=== PATIENT | male | born 1985 | race Caucasian/White ===

== ENCOUNTER 2017-01-11 01:45 | Emergency (ER) | payer SELFPAY ==
[2017-01-11 02:06] VITALS: BP 137/83
[2017-01-11] MEDS ORDERED: HYDROMORPHONE HCL INJ/PF 2 MG/ML AMPULE IM ONE (03:03)
[2017-01-11] MEDS ORDERED: LIDOCAINE 1% INJ-PF (10 MG/ML) 30 ML SDV INJ ONE (03:03)
[2017-01-11] MEDS ORDERED: ONDANSETRON 4 MG TAB.RAPDIS PO ONE (03:03)
--- NOTE | 2017-01-11 03:04 | ER Document Report ---
ED Skin Rash/Insect Bite/Abscs - General Chief Complaint: Abscess Stated Complaint: POSSIBLE ABSCESS Time Seen by Provider: 01/11/17 02:45 Notes: Patient is a 31-year-old male comes emergency department for chief complaint of an abscess on the back of his neck at the base of his hairline, he states he has squeezed pus out of it but it has spread instead of going away. He states he thinks he had a fever yesterday. He denies any daily medications, he does not have diabetes. TRAVEL OUTSIDE OF THE [place] IN LAST 30 DAYS: No - Related Data Allergies/Adverse Reactions: No Known Allergies Allergy (Unverified 01/11/17 02:07) Past Medical History - General Information source: Patient - Social History Smoking Status: Current Every Day Smoker Chew tobacco use (# tins/day): No Frequency of alcohol use: None Drug Abuse: None Lives with: Family Family History: None, Reviewed & Not Pertinent Patient has suicidal ideation: No Patient has homicidal ideation: No Renal/ Medical History: Denies: Hx Peritoneal Dialysis Skin Medical History: Reports Hx Cellulitis Psychiatric Medical History: Reports: Hx Depression - Immunizations Immunizations up to date: Yes Hx Diphtheria, Pertussis, Tetanus Vaccination: No Review of Systems - Review of Systems Constitutional: No symptoms reported EENT: No symptoms reported Cardiovascular: No symptoms reported Respiratory: No symptoms reported Gastrointestinal: No symptoms reported Genitourinary: No symptoms reported Male Genitourinary: No symptoms reported Musculoskeletal: No symptoms reported Skin: See HPI Hematologic/Lymphatic: No symptoms reported Neurological/Psychological: No symptoms reported Physical Exam - Vital signs Vitals: Temp Pulse Resp BP Pulse Ox 97.8 F 94 16 137/83 H 97 01/11/17 02:02 01/11/17 02:02 01/11/17 02:02 01/11/17 02:02 01/11/17 02:02 Interpretation: Normal - General General appearance: Appears well, Alert In distress: None - HEENT Head: Normocephalic, Atraumatic Eyes: Normal Pupils: PERRL - Respiratory Respiratory status: No respiratory distress Chest status: Nontender Breath sounds: Normal Chest palpation: Normal - Cardiovascular Rhythm: Regular Heart sounds: Normal auscultation Murmur: No - Abdominal Inspection: Normal Distension: No distension Bowel sounds: Normal Tenderness: Nontender Organomegaly: No organomegaly - Back Back: Normal, Nontender - Extremities General upper extremity: Normal inspection, Nontender, Normal color, Normal ROM , Normal temperature General lower extremity: Normal inspection, Nontender, Normal color, Normal ROM , Normal temperature, Normal weight bearing. No: Armaan's sign - Neurological Neuro grossly intact: Yes Cognition: Normal Orientation: AAOx4 Bishop Coma Scale Eye Opening: Spontaneous Bishop Coma Scale Verbal: Oriented [place] Coma Scale Motor: Obeys Commands Bishop Coma Scale Total: 15 Speech: Normal Motor strength normal: LUE, RUE, LLE, RLE Sensory: Normal - Psychological Associated symptoms: Normal affect, Normal mood - Skin Skin Temperature: Warm Skin Moisture: Dry Skin Color: Normal Skin irregularity: Abscess - 2 adjacent abscesses at the nape of the left neck area, induration and fluctuance, medial one is already draining, no significant erythema spreading away from the area, normal skin exam otherwise Course - Re-evaluation Re-evalutation: 2 abscesses drained and packed. Provided dressing materials, discussed care of the abscesses, discussed follow-up and return precautions. 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 Patient is afebrile here, vital signs unremarkable. Patient states understanding and agreement. - Vital Signs Vital signs: Temp Pulse Resp BP Pulse Ox 97.8 F 94 16 137/83 H 97 01/11/17 02:02 01/11/17 02:02 01/11/17 02:02 01/11/17 02:02 01/11/17 02:02 Procedures - Incision and Drainage Left mid posterior neck Type: Multiple - 2 separate abscesses Anesthetic type: 1% Lidocaine mL's of anesthetic: 4 Blade size: 11 I&D procedure: Shurclens applied - Surgical cleanser, Iodoform packing placed, Sterile dressing applied Incision Method: Incision made by scalpel Amount/type of drainage: Moderate amount of purulent drainage Discharge - Discharge Clinical Impression: Abscess Condition: Stable Disposition: HOME, SELF-CARE Additional Instructions: Your examination showed abscess of sebaceous (oil) glands. In 48 hours take the packing out, clean with soap and water, apply absorbent dressing over the area while these drain and heal. Take the antibiotic as prescribed. Follow up with Primary Care. Return to the ED for any concerning or worsening symptoms - spreading redness, swelling, spiking fever, etc. Prescriptions: Sulfamethoxazole/Trimethoprim [Bactrim Ds Tablet] 1 each PO BID #14 tablet Forms: Return to Work
[2017-01-11] MEDS ORDERED: HYDROCODONE/ACETAMINOPHEN 5-325 MG 6 TAB/DSPK PO PRN (04:21)
== END 2017-01-11 04:39 | disposition home or self-care (01) ==
LOC: ER 01:45
PROC: 0H94XZZ Drainage of Neck Skin, External Approach (ICD-10-PCS; principal; 2017-01-11)
DX: L02.11 Cutaneous abscess of neck (principal); Z86.14 Personal history of Methicillin resistant Staphylococcus aureus infection
CPT/HCPCS: 99283; 96372; 10060; A6266; S0119; J3490; J1170

== ENCOUNTER 2017-02-24 14:25 | Observation (INO) | payer SELFPAY ==
--- NOTE | 2017-02-24 15:15 | ER Document Report ---
ED Skin Rash/Insect Bite/Abscs - General Chief Complaint: Abscess Stated Complaint: NECK PAIN Time Seen by Provider: 02/24/17 15:02 Mode of Arrival: Ambulatory Information source: Patient Notes: 31-year-old male presents to ED for abscess to the left posterior neck that goes all the way across to the back of the neck and down to the upper shoulders. He states he was in the emergency room in December for an abscess to a similar area had it I&D placed on Keflex and Bactrim and was discharged home after they had opened up the abscess. He states that the abscess came back on his left side about a week to 2 weeks later he went to [facility] they did not janet it but they did put him on the Keflex and Bactrim again he states it got a little better but 6 or 7 days ago the abscess is back on the back of his neck his neck is very swollen he is unable to move his neck due to the pain and swelling from the abscess his pulse is 133 while in the emergency room but his temp is 98.9. States his pain level is a 5. TRAVEL OUTSIDE OF THE [place] IN LAST 30 DAYS: No - HPI Patient complains to provider of: Tender/swollen area Onset: Last week Onset/Duration: Gradual, Worse Quality of pain: Pressure, Sharp, Throbbing Severity: Severe Pain Level: 5 Skin Character: Abscess, Erythema, Swelling, Tenderness, Thickening Quality of rash: Painful Exacerbated by: Movement Relieved by: Denies Similar symptoms previously: Yes Recently seen / treated by doctor: Yes - Related Data Allergies/Adverse Reactions: No Known Allergies Allergy (Verified 02/24/17 14:29) Home Medications: Current Home Medications No Home Medications 02/24/17 [History] Past Medical History - General Information source: Patient - Social History Smoking Status: Current Every Day Smoker Cigarette use (# per day): Yes Chew tobacco use (# tins/day): No Smoking Education Provided: Yes - Less than 2 minutes Frequency of alcohol use: None Drug Abuse: None Lives with: Family Family History: Reviewed & Not Pertinent Patient has suicidal ideation: No Patient has homicidal ideation: No - Past Medical History Cardiac Medical History: Reports: None Pulmonary Medical History: Reports: None EENT Medical History: Reports: None Neurological Medical History: Reports: None Endocrine Medical History: Reports: None Renal/ Medical History: Reports: None Malignancy Medical History: Reports None GI Medical History: Reports: None Musculoskeltal Medical History: Reports Hx Musculoskeletal Deformity, Reports Hx Musculoskeletal Trauma Skin Medical History: Reports Hx Cellulitis Psychiatric Medical History: Reports: Hx Depression Traumatic Medical History: Reports: None Infectious Medical History: Reports: None Surgical Hx: Negative - Immunizations Immunizations up to date: Yes Hx Diphtheria, Pertussis, Tetanus Vaccination: No Review of Systems - Review of Systems Constitutional: No symptoms reported EENT: No symptoms reported Cardiovascular: No symptoms reported Respiratory: No symptoms reported Gastrointestinal: No symptoms reported Genitourinary: No symptoms reported Male Genitourinary: No symptoms reported Musculoskeletal: No symptoms reported Skin: Change in color, Other - Red swelling abscess to posterior neck Hematologic/Lymphatic: No symptoms reported Neurological/Psychological: No symptoms reported -: Yes All other systems reviewed and negative Physical Exam - Vital signs Vitals: Temp Pulse BP Pulse Ox 98.9 F 133 H 147/86 H 97 02/24/17 14:28 02/24/17 14:28 02/24/17 14:28 02/24/17 14:28 Interpretation: Normal - General General appearance: Appears well, Alert - HEENT Head: Normocephalic, Atraumatic Eyes: Normal Pupils: PERRL - Respiratory Respiratory status: No respiratory distress Chest status: Nontender Breath sounds: Normal Chest palpation: Normal - Cardiovascular Rhythm: Regular Heart sounds: Normal auscultation Murmur: No - Abdominal Inspection: Normal Distension: No distension Bowel sounds: Normal Tenderness: Nontender Organomegaly: No organomegaly - Back Back: Normal, Nontender - Extremities General upper extremity: Normal inspection, Nontender, Normal color, Normal ROM , Normal temperature General lower extremity: Normal inspection, Nontender, Normal color, Normal ROM , Normal temperature, Normal weight bearing. No: Armaan's sign - Neurological Neuro grossly intact: Yes Cognition: Normal Orientation: AAOx4 Mary [place] Coma Scale Eye Opening: Spontaneous [place] Coma Scale Verbal: Oriented Mary [place] Coma Scale Motor: Obeys Commands Mary Lou Coma Scale Total: 15 Speech: Normal Motor strength normal: LUE, RUE, LLE, RLE Sensory: Normal - Psychological Associated symptoms: Normal affect, Normal mood - Skin Skin Temperature: Warm Skin Moisture: Dry Skin Color: Normal Skin irregularity: Abscess Location of irregularity: Neck Character of irregularity: Erythematous Irregularity with: Swelling, Tenderness, Warmth Course - Re-evaluation Re-evalutation: 02/24/17 15:54 Patient's pulse was 138 and upon initial assessment with a low-grade temp of 100.2. He has a large infected area to the back of his head neck and upper back. He states this has returned several times and is failed outpatient treatment. Dr. Nunes was consulted and he stated that we needed to get a CT IV contrast of the neck to rule out any deep abscesses. We will do a septic workup on him, we are starting him on Zosyn and vancomycin clindamycin giving morphine Zofran and Toradol. I have started him on 2 L of fluid bolus. He will be admitted to either surgery or hospice depending on results of the CT scan. - Vital Signs Vital signs: Temp Pulse Resp BP Pulse Ox 98.1 F 90 13 127/83 H 100 02/24/17 19:04 02/24/17 19:04 02/24/17 19:04 02/24/17 19:04 02/24/17 19:04 - Laboratory Result Diagrams: 02/24/17 15:35 02/24/17 15:35 Laboratory results interpreted by me: 02/24/17 02/24/17 15:35 15:35 WBC 10.7 H Glucose 120 H Total Bilirubin 1.7 H Discharge - Discharge Clinical Impression: shingle left neck, cellulitis posterior neck Condition: Poor Disposition: ADMITTED OBSERVATION Admitting Provider: Hospitalist [facility] Unit Admitted: Medical Floor
[2017-02-24] MEDS ORDERED: ONDANSETRON HCL INJ/PF 4 MG/2 ML SDV IV ONE (15:21)
[2017-02-24] MEDS ORDERED: MORPHINE SULFATE 10 MG/ML INJ IV ONE (15:21)
[2017-02-24] MEDS ORDERED: VANCOMYCIN HCL INJ 1000 MG VIAL IV ONE (15:38)
[2017-02-24] MEDS ORDERED: CLINDAMYCIN 600 MG/D5W RTU 600 MG/50 ML RTUPB IV ONE (15:38)
[2017-02-24] MEDS ORDERED: PIPERACILLIN/TAZOBACTAM 4.5 GM VIAL IV ONE (15:39)
[2017-02-24] MEDS: NORMAL SALINE 1000 ML 1,000 ML IV PRN ×2 (15:42→16:58)
[2017-02-24] MEDS ORDERED: KETOROLAC TROMETHAMINE INJ/PF 30 MG/1 ML SDV IV ONE (15:42)
[2017-02-24 16:01] LABS: ABSOLUTE EOSINOPHILS # (AUTO) 0.1 10^3/uL (0.0-0.6); ABSOLUTE LYMPHOCYTES (AUTO) 2.3 10^3/uL (0.5-4.7); ABSOLUTE MONOCYTES (AUTO) 0.9 10^3/uL (0.1-1.4); ABSOLUTE NEUT (AUTO) 7.4 10^3/uL (1.7-8.2); BASOPHILS % (AUTO) 0.3 % (0-2); EOSINOPHILS % (AUTO) 0.9 % (0-6); HEMATOCRIT 44.3 % (37.9-51.0); HEMOGLOBIN 15.7 g/dL (13.5-17.0); HGB HCT DIFFERENCE 2.8; LYMPHOCYTES % (AUTO) 21.5 % (13-45); MEAN CORPUSCULAR HEMOGLOBIN 29.8 pg (27.0-33.4); MEAN CORPUSCULAR HGB CONC 35.5 g/dL (32.0-36.0); MEAN CORPUSCULAR VOLUME 84 fl (80-97); MONOCYTES % (AUTO) 8.6 % (3-13); RED BLOOD COUNT 5.28 10^6/uL (4.35-5.55); RED CELL DISTRIBUTION WIDTH 13.2 % (11.5-14.0); SEGMENTED NEUTROPHILS % (AUTO) 68.7 % (42-78); WHITE BLOOD COUNT 10.7 10^3/uL (4.0-10.5)
[2017-02-24 16:22] LABS: ALANINE AMINOTRANSFERASE 51 U/L (21-72); ALBUMIN 4.5 g/dL (3.5-5.0); ALKALINE PHOSPHATASE 39 U/L (38-126); ANION GAP 14 (5-19); ASPARTATE AMINO TRANSFERASE 34 U/L (17-59); BILIRUBIN,DIRECT 0.4 mg/dL (0.0-0.4); BILIRUBIN,TOTAL 1.7 mg/dL (0.2-1.3); BLOOD UREA NITROGEN 9 mg/dL (7-20); CALCIUM 9.5 mg/dL (8.4-10.2); CARBON DIOXIDE 23 mmol/L (22-30); CHLORIDE 102 mmol/L (98-107); CREATININE RESULT 0.81 mg/dL (0.52-1.25); GLUCOSE 120 mg/dL (75-110); POTASSIUM 3.8 mmol/L (3.6-5.0); SODIUM 138.9 mmol/L (137-145); TOTAL PROTEIN 7.5 g/dL (6.3-8.2)
--- NOTE | 2017-02-24 16:32 | RADIOLOGY REPORT (SQ) ---
EXAM DESCRIPTION: CHEST PA/LAT COMPLETED DATE/TIME: 02/24/2017 4:20 pm REASON FOR STUDY: fever neck infection COMPARISON: 12/06/2014 EXAM PARAMETERS: NUMBER OF VIEWS: two views TECHNIQUE: Digital Frontal and Lateral radiographic views of the chest acquired. RADIATION DOSE: NA LIMITATIONS: none FINDINGS: LUNGS AND PLEURA: No opacities, masses or pneumothorax. No pleural effusion. MEDIASTINUM AND HILAR STRUCTURES: No masses or contour abnormalities. HEART AND VASCULAR STRUCTURES: Heart normal size. No evidence for failure. BONES: No acute findings. HARDWARE: None in the chest. OTHER: No other significant finding. IMPRESSION: NO SIGNIFICANT RADIOGRAPHIC FINDING IN THE CHEST. TECHNICAL DOCUMENTATION: JOB ID: [id number] [employer]- All Rights Reserved
--- NOTE | 2017-02-24 16:42 | RADIOLOGY REPORT (SQ) ---
EXAM DESCRIPTION: CT SOFT TISSUE NECK WITH COMPLETED DATE/TIME: 02/24/2017 4:26 pm REASON FOR STUDY: neck infection fever tachycardic Attention posterior left neck COMPARISON: None. TECHNIQUE: Post IV contrasted scanning from skull base through lung apices with review of bone, soft tissue and lung windows. Reconstructed coronal and sagittal MPR images reviewed. All images stored on PACS. All CT scanners at this facility use dose modulation, iterative reconstruction, and/or weight based d osing when appropriate to reduce radiation dose to as low as reasonably achievable (ALARA). [facility]: Dose Right [facility]: CareDose [facility]: Dose Right [facility]: Teradose 4D [facility]: FortaTrust CONTRAST TYPE AND DOSE: contrast/concentration: Isovue 370.00 mg/ml; Total Contrast Delivered: 75.0 ml; Total Saline Delivered: 55.0 ml 75 mL Isovue 370 intravenously RENAL FUNCTION: Not required for younger patients. RADIATION DOSE: Up-to-date CT equipment and radiation dose reduction techniques were employed. CTDIv ol: 16.1 mGy. DLP: 625 mGy-cm. . LIMITATIONS: None. FINDINGS: SKULL BASE: Intact. MAJOR SALIVARY GLANDS: No solid or cystic masses. No inflammatory changes. LYMPHADENOPATHY: Scattered nodes are seen in the posterior left neck up to 15 mm. No soft tissue air or abnormal fluid collections. Skin thickening is noted. MUCOSAL MASSES OR ASYMMETRY: No mucosal masses or asymmetry. LARYNX/CORDS: No abnormal findings. VASCULAR STRUCTURES: The major vessels are patent. LUNG APICES: Clear. BONES: Intact. THYROID: Normal size. No masses. PARANASAL SINUSES: Clear. OTHER: No other significant finding. IMPRESSION: Slight adenopathy and skin thickening posterior left neck, nodes up to 15 mm. No soft tissue air or abnormal fluid collections. TECHNICAL DOCUMENTATION: JOB ID: [id number] Quality ID # [id number]: Final reports with documentation of one or more dose reduction techniques (e.g., Au tomated exposure control, adjustment of the mA and/or kV according to patient size, use of iterative reconstruction technique) 2010 [employer]- All Rights Reserved
[2017-02-24] MEDS ORDERED: ACETAMINOPHEN 650 MG SUPP.RECT PR PRN (17:30)
[2017-02-24] MEDS ORDERED: ONDANSETRON HCL INJ/PF 4 MG/2 ML SDV IV PRN (17:30)
[2017-02-24] MEDS ORDERED: ZOLPIDEM TARTRATE 5 MG TABLET PO PRN (17:30)
[2017-02-24] MEDS ORDERED: KETOROLAC TROMETHAMINE INJ/PF 30 MG/1 ML SDV IV PRN (17:48)
[2017-02-24] MEDS ORDERED: VALACYCLOVIR HCL 500 MG TABLET PO SCH ×2 (18:00→22:00)
--- NOTE | 2017-02-24 18:07 | PDOC H&P ---
History of Present Illness Patient complains of: Neck pain for 1 week History of Present Illness: DAVONTE SULLIVAN is a 31 year old male presented to urgent care complaining of neck pain for 1 week. Patient states that has been having break outs for the past month. He has been treated with a combination of Septra and Keflex with no improvement. Patient thinks describes excruciating pain burning like. He has been exposed to shingles. Patient admits a history of opioid abuse in the past. Patient complains of having bad nerves. He also complains of having high tolerance to medications for pain. He smokes a pack of cigarettes daily. Has a history of hepatitis C. During the course of evaluation in the emergency room patient was treated with Zosyn, clindamycin and vancomycin. Hospitalist service was contacted for further management and prompted to admit primarily for observation status for pain management. Past Medical History Cardiac Medical History: Reports: None Pulmonary Medical History: Reports: None EENT Medical History: Reports: None Neurological Medical History: Reports: None Endocrine Medical History: Reports: None Renal/ Medical History: Reports: None Malignancy Medical History: Reports: None GI Medical History: Reports: None, Hepatitis - Hepatitis C, Other Psychiatric Medical History: Reports: Depression, Substance Abuse, Tobacco Dependency Traumatic Medical History: Reports: None Infectious Medical History: Reports: None Past Surgical History Past Surgical History: Reports: Other - Incision and drainage of lesions of the back of the neck Social History Lives with: Family Smoking Status: Current Every Day Smoker Frequency of Alcohol Use: None Hx Recreational Drug Use: No Hx Prescription Drug Abuse: Yes - Advance Directive Resuscitation Status: Full Code Family History Family History: Reviewed & Not Pertinent Parental Family History Reviewed: Yes Children Family History Reviewed: Yes Sibling(s) Family History Reviewed.: Yes Medication/Allergy Home Medications: No Home Medications 02/24/17 Allergies/Adverse Reactions: No Known Allergies Allergy (Verified 02/24/17 14:29) Review of Systems Constitutional: ABSENT: chills, fever(s), headache(s) Eyes: ABSENT: visual disturbances Ears: ABSENT: hearing changes Cardiovascular: ABSENT: chest pain, edema, palpitations Respiratory: ABSENT: dyspnea, hemoptysis Gastrointestinal: ABSENT: diarrhea, dysphagia, heartburn Genitourinary: ABSENT: dysuria, hematuria Musculoskeletal: ABSENT: deformity, joint swelling Integumentary: PRESENT: rash Neurological: ABSENT: abnormal gait, focal weakness Psychiatric: PRESENT: anxiety, depression. ABSENT: homidical ideation, suicidal ideation Physical Exam Vital Signs: Temp Pulse Resp BP Pulse Ox 98.9 F 133 H 13 147/86 H 98 02/24/17 14:28 02/24/17 14:28 02/24/17 16:04 02/24/17 14:28 02/24/17 16:04 Intake & Output 02/23/17 02/24/17 02/25/17 06:59 06:59 06:59 Weight 96.6 kg General appearance: PRESENT: mild distress, well-developed, well-nourished Head exam: PRESENT: atraumatic, normocephalic Eye exam: PRESENT: conjunctiva pink, EOMI, PERRLA Ear exam: PRESENT: normal external ear exam Mouth exam: PRESENT: moist, other - There is mild redness and swelling localized to the posterior aspect of neck. There are some dried vesicular lesions noted left sided posteriorly. Neck exam: PRESENT: tenderness. ABSENT: full ROM, JVD, lymphadenopathy, meningismus Respiratory exam: PRESENT: clear to auscultation juan jose Cardiovascular exam: PRESENT: diastolic murmur, RRR, systolic murmur Vascular exam: PRESENT: normal capillary refill GI/Abdominal exam: PRESENT: normal bowel sounds, soft. ABSENT: tenderness Extremities exam: PRESENT: full ROM. ABSENT: joint swelling, pedal edema Musculoskeletal exam: PRESENT: full ROM Neurological exam: PRESENT: alert, oriented to person, oriented to place, oriented to time Psychiatric exam: PRESENT: anxious, appropriate affect Results Laboratory Results: 02/24/17 15:35 02/24/17 15:35 02/24/17 02/24/17 02/24/17 15:35 15:35 15:35 WBC 10.7 H RBC 5.28 Hgb 15.7 Hct 44.3 MCV 84 MCH 29.8 MCHC 35.5 RDW 13.2 Plt Count 163 Seg Neutrophils % 68.7 Lymphocytes % 21.5 Monocytes % 8.6 Eosinophils % 0.9 Basophils % 0.3 Absolute Neutrophils 7.4 Absolute Lymphocytes 2.3 Absolute Monocytes 0.9 Absolute Eosinophils 0.1 Absolute Basophils 0.0 Sodium 138.9 Potassium 3.8 Chloride 102 Carbon Dioxide 23 Anion Gap 14 BUN 9 Creatinine 0.81 Est GFR ( Amer) > 60 Est GFR (Non-Af Amer) > 60 Glucose 120 H Lactic Acid 1.1 Calcium 9.5 Total Bilirubin 1.7 H AST 34 ALT 51 Alkaline Phosphatase 39 Total Protein 7.5 Albumin 4.5 Impressions: Soft Tissue Neck CT 02/24/17 15:38 IMPRESSION: Slight adenopathy and skin thickening posterior left neck, nodes up to 15 mm. No soft tissue air or abnormal fluid collections. Chest X-Ray 02/24/17 15:40 IMPRESSION: NO SIGNIFICANT RADIOGRAPHIC FINDING IN THE CHEST. Assessment & Plan - Diagnosis (1) Shingles Qualifiers: Herpes zoster complications: unspecified herpes zoster complication Qualified Code(s): B02.8 - Zoster with other complications Is this a current diagnosis for this admission?: Yes Plan: Patient will be placed on valacyclovir a 1,000 milligrams twice a day, gabapentin and Toradol IV. Patient made aware that will avoid opioid use due to his strong history of opioid abuse. Will also add muscle relaxer. (2) Depressed bipolar disorder Is this a current diagnosis for this admission?: Yes Plan: Patient will be placed on Prozac and Zyprexa (3) Tobacco abuse Is this a current diagnosis for this admission?: Yes Plan: Will place on nicotine patch. Will proceed with counseling in a.m. since at the present time may not be receptive for further counseling due to pain - Time Time Spent: 30 to 50 Minutes Medications reviewed and adjusted accordingly: Yes Anticipated discharge: Home Within: within 24 hours - Inpatient Certification Based on my medical assessment, after consideration of the patient's comorbidities, presenting symptoms, or acuity I expect that the services needed warrant INPATIENT care.: No I certify that my determination is in accordance with my understanding of Medicare's requirements for reasonable and necessary INPATIENT services [42 CFR 412.3e].: Yes
[2017-02-24] MEDS ORDERED: ACETAMINOPHEN 325 MG TABLET PO PRN (18:53)
[2017-02-24] MEDS ORDERED: PROMETHAZINE HCL INJ 25 MG/1 ML VIAL IV ONE (18:55)
[2017-02-24] MEDS ORDERED: PROMETHAZINE HCL INJ 25 MG/1 ML VIAL IV PRN (18:56)
[2017-02-24 19:02] VITALS: BP 127/83
[2017-02-24] MEDS ORDERED: DIPHENHYDRAMINE HCL 50 MG CAPSULE PO ONE (19:29)
[2017-02-24] MEDS ORDERED: FAMOTIDINE 20 MG TABLET PO ONE (19:29)
[2017-02-24] MEDS ORDERED: CYCLOBENZAPRINE HCL 10 MG TABLET PO SCH (22:00)
[2017-02-24] MEDS ORDERED: GABAPENTIN 400 MG CAPSULE PO SCH (22:00)
[2017-02-24] MEDS ORDERED: CLONIDINE HCL 0.1 MG TABLET PO SCH (22:00)
[2017-02-24] MEDS ORDERED: OLANZAPINE 5 MG TABLET PO SCH (22:00)
[2017-02-25] MEDS ORDERED: FLUOXETINE HCL 20 MG CAPSULE PO SCH (10:00)
--- NOTE | 2017-02-25 18:51 | Progress Note ---
Provider Note Provider Note: Patient left AMA in less than 24 hours. H&P should serve as discharge summary in the vent is needed.
== END 2017-02-24 23:45 | disposition home or self-care (01) ==
LOC: ER 14:25 → EH 17:30 → UNDOADMOB 18:30 → 4N 20:00
PROVIDERS: ADMIT Internal Medicine; ATTEND Internal Medicine
DX: B02.8 Zoster with other complications (principal); F31.9 Bipolar disorder, unspecified; F17.210 Nicotine dependence, cigarettes, uncomplicated; F19.11 Other psychoactive substance abuse, in remission; F41.9 Anxiety disorder, unspecified; R59.9 Enlarged lymph nodes, unspecified; Z86.19 Personal history of other infectious and parasitic diseases; Z53.21 Procedure and treatment not carried out due to patient leaving prior to being seen by health care provider; Z98.890 Other specified postprocedural states
CPT/HCPCS: 99285; 96375; 96365; 96366; 96367; 96368; 36415; 87040; 85025; 80053; 83605; 71020; 70491; J1885; J2270; J2550; J3490; J2405; J7030; J3370; J2543

== ENCOUNTER 2017-06-15 00:20 | Emergency (ER) | payer SELFPAY ==
[2017-06-15] MEDS ORDERED: VANCOMYCIN HCL INJ 1000 MG VIAL IV ONE (00:47)
[2017-06-15] MEDS ORDERED: ONDANSETRON HCL INJ/PF 4 MG/2 ML SDV IV ONE (00:48)
[2017-06-15] MEDS ORDERED: HYDROMORPHONE HCL INJ/PF 2 MG/ML AMPULE IV ONE (00:48)
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
[2017-06-15] MEDS ORDERED: CEFTRIAXONE INJ 1000 MG VIAL IV ONE (00:55)
[2017-06-15 01:23] LABS: ABSOLUTE BASOPHILS # (AUTO) 0.1 10^3/uL (0.0-0.2); ABSOLUTE EOSINOPHILS # (AUTO) 0.7 10^3/uL (0.0-0.6); ABSOLUTE LYMPHOCYTES (AUTO) 2.4 10^3/uL (0.5-4.7); ABSOLUTE MONOCYTES (AUTO) 0.4 10^3/uL (0.1-1.4); ABSOLUTE NEUT (AUTO) 6.4 10^3/uL (1.7-8.2); BASOPHILS % (AUTO) 0.7 % (0-2); EOSINOPHILS % (AUTO) 7.3 % (0-6); HEMATOCRIT 42.4 % (37.9-51.0); LYMPHOCYTES % (AUTO) 24.3 % (13-45); MEAN CORPUSCULAR HEMOGLOBIN 30.7 pg (27.0-33.4); MEAN CORPUSCULAR HGB CONC 35.3 g/dL (32.0-36.0); MEAN CORPUSCULAR VOLUME 87 fl (80-97); MONOCYTES % (AUTO) 3.9 % (3-13); PLATELET COUNT 109 10^3/uL (150-450); RED BLOOD COUNT 4.89 10^6/uL (4.35-5.55); SEGMENTED NEUTROPHILS % (AUTO) 63.8 % (42-78); TOTAL CELLS COUNTED % (AUTO) 100 %
[2017-06-15 02:11] LABS: ANION GAP 8 (5-19); BLOOD UREA NITROGEN 10 mg/dL (7-20); CALCIUM 8.5 mg/dL (8.4-10.2); CARBON DIOXIDE 27 mmol/L (22-30); CHLORIDE 101 mmol/L (98-107); GLUCOSE 118 mg/dL (75-110); POTASSIUM 3.3 mmol/L (3.6-5.0); SODIUM 136.1 mmol/L (137-145)
[2017-06-15] MEDS ORDERED: ACETAMINOPHEN 325 MG TABLET PO PRN (02:49)
[2017-06-15] MEDS ORDERED: OXYCODONE-ACETAMINOPHEN 5-325 MG TABLET PO PRN (02:49)
[2017-06-15] MEDS ORDERED: PROMETHAZINE HCL INJ 25 MG/1 ML VIAL IV PRN (02:49)
[2017-06-15] MEDS ORDERED: CEPHALEXIN 500 MG CAPSULE PO ONE (03:13)
[2017-06-15] MEDS ORDERED: POTASSIUM CHLORIDE 10 MEQ TABLET.SA PO ONE (03:14)
[2017-06-15] MEDS ORDERED: CLINDAMYCIN HCL 150 MG CAPSULE PO ONE (03:16)
[2017-06-15] MEDS ORDERED: SULFAMETHOXAZOLE/TRIMETHOPRIM 800-160 MG TABLET PO ONE (03:16)
[2017-06-15 04:19] VITALS: BP 118/69
[2017-06-15] MEDS ORDERED: CLINDAMYCIN 600 MG/D5W RTU 600 MG/50 ML RTUPB IV SCH (06:00)
== END 2017-06-15 04:19 | disposition home or self-care (01) ==
LOC: ER 00:20 → UNDOADMIN 02:38 → EH 02:38 → ER 04:19
DX: L03.313 Cellulitis of chest wall (principal); R68.83 Chills (without fever); F17.200 Nicotine dependence, unspecified, uncomplicated
CPT/HCPCS: 99283; 96375; 96365; 96367; 36415; 85025; 80048; J1170; J0696; J2405; J3370

== ENCOUNTER 2017-07-22 20:31 | Emergency (ER) | payer SELFPAY ==
[2017-07-22 20:50] VITALS: BP 125/73
[2017-07-22] MEDS ORDERED: BUTALB/ACETAMINOPHEN/CAFFEINE 1 TAB EACH PO ONE (22:16)
[2017-07-22] MEDS ORDERED: DIPHENHYDRAMINE HCL 50 MG CAPSULE PO ONE (22:16)
[2017-07-22] MEDS ORDERED: ONDANSETRON HCL 8 MG TABLET PO ONE (22:16)
--- NOTE | 2017-07-22 22:17 | ER Document Report ---
HPI - HPI Pain Level: 5 Context: Patient is a 31-year-old male presents emergency department the chief complaint of headache. Admits to sinus congestion over the past 10 days. Has not been taking anything for it. States that today he woke up with a headache took Tylenol twice a dental significant improvement. As a one episode of emesis. It also admits to light sensitivity. Denies any previous history of migraines. Denies any vision changes, focal neurological weakness. Describes his headache as frontal along the maxillary and frontal sinuses. Denies any fevers or chills, purulent drainage from the sinuses - REPRODUCTIVE Reproductive: DENIES: : Past Medical History - Social History Smoking Status: Current Every Day Smoker Family History: Reviewed & Not Pertinent Renal/ Medical History: Denies: Hx Peritoneal Dialysis GI Medical History: Reports: Hx Hepatitis - Hepatitis C Musculoskeltal Medical History: Reports Hx Musculoskeletal Deformity, Reports Hx Musculoskeletal Trauma Skin Medical History: Reports Hx Cellulitis Psychiatric Medical History: Reports: Hx Depression Infectious Medical History: Reports: Hx Hepatitis - Hepatitis C Past Surgical History: Reports: Other - Incision and drainage of lesions of the back of the neck - Immunizations Immunizations up to date: Yes Hx Diphtheria, Pertussis, Tetanus Vaccination: No Vertical Provider Document - CONSTITUTIONAL Agree With Documented VS: Yes Notes: PHYSICAL EXAM GENERAL: Alert, interacts well. HEAD: Normocephalic, atraumatic. EYES: Pupils equal, round, and reactive to light. Extraocular movements intact. ENT: Oral mucosa moist, tongue midline. Admits to sinus pressure during palpation but no focal tenderness NECK: Full range of motion. Supple. Trachea midline. EXTREMITIES: Moves all 4 extremities spontaneously. No edema, radial and dorsalis pedis pulses 2/4 bilaterally. No cyanosis. NEUROLOGICAL: Alert and oriented x4. Face symmetric. Tongue protrudes midline. Extraocular motions intact. Pupils are 2 mm and equally reactive. Normal speech, normal gait. 5 out of 5 strength in both the distal and proximal upper and lower extremities bilaterally. Sensation is grossly intact throughout. Finger to nose testing normal. Pronator drift normal. PSYCH: Normal affect, normal mood. SKIN: Warm, dry, normal turgor. No rashes or lesions noted. - INFECTION CONTROL TRAVEL OUTSIDE OF THE [place] IN LAST 30 DAYS: No Course - Re-evaluation Re-evalutation: 07/22/17 23:09 Patient is a 31-year-old male is hemodynamically stable, no acute distress and afebrile. Presentation is consistent with a frontal sinus headache due to congestion. No concern for an acute sinusitis given afebrile without any focal erythema, purulent drainage. Patient does not have any focal neurologic deficits, nuchal rigidity, vital signs are within normal limits no papilledema. Patient is otherwise no acute distress and hemodynamically stable. Low index for suspicion of acute subarachnoid hemorrhage, meningitis or mass. Low suspicion for acute life-threatening etiology with intact neuro exam therefore no additional imaging or laboratory testing is indicated. Will discharge patient home with strict follow-up with PCP - Vital Signs Vital signs: Temp Pulse Resp BP Pulse Ox 98.7 F 86 16 125/73 96 07/22/17 20:49 07/22/17 20:49 07/22/17 20:49 07/22/17 20:49 07/22/17 20:49 Discharge - Discharge Clinical Impression: Sinus congestion Headache Qualifiers: Headache type: unspecified Headache chronicity pattern: acute headache Intractability: intractable Qualified Code(s): R51 - Headache Condition: Good Disposition: HOME, SELF-CARE Additional Instructions: For sinus congestion he can take ftkr-bas-hzhnavy Claritin-D or Nohemi-D which has the added benefit of decongestant. For nasal congestion he can take over- the-counter Afrin which is a nasal spray. It is important to take this as directed on the bottle because if you overuse it you can become dependent on it. Otherwise please take that had not medication as directed. You have been seen in the Emergency Department (ED) for a headache. Please use Tylenol (acetaminophen) or Motrin (ibuprofen) as needed for symptoms, but only as written on the box. As we have discussed, please follow up with your primary care doctor as soon as possible regarding today's ED visit and your headache symptoms. Call your doctor or return to the ED if you have a worsening headache, sudden and severe headache, confusion, slurred speech, facial droop, weakness or numbness in any arm or leg, extreme fatigue, or other symptoms that concern you. Prescriptions: Butalb/Acetaminophen/Caffeine [Fioricet (50-325-40 mg) Tablet] 1 tab PO Q4HP PRN #30 tab PRN Reason: Referrals: MANINDER PANDA MD [Primary Care Provider] - Follow up as needed
== END 2017-07-22 23:30 | disposition home or self-care (01) ==
LOC: ER 20:31
DX: R09.81 Nasal congestion (principal); R51 Headache; R11.10 Vomiting, unspecified; H53.149 Visual discomfort, unspecified; F17.200 Nicotine dependence, unspecified, uncomplicated
CPT/HCPCS: 99283; J3490; S0119

== ENCOUNTER 2020-01-01 16:09 | Emergency (ER) | payer SELFPAY ==
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
[2020-01-01 18:43] VITALS: BP 114/60
== END 2020-01-01 18:44 | disposition home or self-care (01) ==
LOC: ER 16:09
DX: M25.532 Pain in left wrist (principal); F17.200 Nicotine dependence, unspecified, uncomplicated; Z86.19 Personal history of other infectious and parasitic diseases
CPT/HCPCS: 99283